=== PATIENT | female | born 1945 ===

== ENCOUNTER 2021-11-29 19:58 | Inpatient (IN) ==
[2021-11-29] MEDS ORDERED: GLUCAGON 1 MG VIAL IM PRN ×2 (22:30)
[2021-11-29] MEDS ORDERED: hydrALAZINE 20 MG/1 ML VIAL IV PRN (22:30)
[2021-11-29] MEDS ORDERED: diphenhydrAMINE CAP 25 MG CAPSULE PO PRN (22:30)
[2021-11-29] MEDS ORDERED: ONDANSETRON 4 MG/2 ML VIAL IV PRN (22:30)
[2021-11-29] MEDS ORDERED: MORPHINE 2 MG/1 ML SYRINGE IV PRN (22:30)
[2021-11-29] MEDS ORDERED: ALBUTEROL/IPRATROPIUM 3 ML NEB RESP TX PRN (22:30)
[2021-11-29] MEDS ORDERED: DEXTROSE 10% 250 ML BAG IV PRN (22:30)
[2021-11-29] MEDS ORDERED: DEXTROSE 50% 25 GM/50 ML VIAL IV PRN (22:30)
[2021-11-29] MEDS ORDERED: ZALEPLON 5 MG CAPSULE PO PRN (22:30)
[2021-11-29] MEDS ORDERED: NICOTINE 21 MG/24 HR PATCH TRANSDERM PRN (22:30)
[2021-11-29 23:52] LABS: INR 1.2; PT Patient Result 12.9 SECS (10.5-12.0); Partial Thromboplastin Time 32.9 SECS (23.7-32.9)
[2021-11-29 23:56] LABS: Albumin 1.5 G/DL (3.4-5.0); Bilirubin,Direct 9.46 MG/DL (0.0-0.20); Bilirubin,Total 11.5 MG/DL (0.20-1.00); Osmolality,Calculated 275.7 MOS/KG (273-304); Potassium 3.2 MMOL/L (3.5-5.1); Total Protein 6.5 G/DL (6.4-8.2)
[2021-11-30 00:18] LABS: Basophils # 0.1 10*3/uL (0.0-0.2); Basophils % 0.6 % (0.0-0.8); Eosinophils # 0.3 10*3/uL (0.0-0.87); Eosinophils % 3.9 % (0.00-10.9); Hemoglobin 11.1 GM/DL (12.0-16.0); Immature Granulocytes % 0.5 %; Immature Granulocytes Absolute 0.04 #; Lymphocytes # 0.4 10*3/uL (1.4-4.0); Mean Corpuscular HGB Conc 32.6 GM/DL (32-36); Mean Corpuscular Volume 89.2 FL (87-102); Mean Platelet Volume 9.9 FL (9.6-12.0); Monocytes # 0.7 10*3/uL (0.11-0.8); Monocytes % 8.4 % (1.7-12.7); Neutrophils % 81.6 % (38.7-73.9); Platelet Count 156 T/CUMM (130-400); Red Blood Count 3.81 MC/CUMM (3.8-5.5); Red Cell Distribution Width 16.9 % (9.3-17.3); White Blood Count 8.7 T/CUMM (4-12)
[2021-11-30] MEDS ORDERED: DEXT 5% NACL 0.9% KCL 40 MEQ 40 MEQ/1,000 ML BAG IV SCH (01:00)
[2021-11-30] MEDS: SODIUM CHLOR 0.9% KCL 40 MEQ 40 MEQ/1,000 ML BAG IV SCH ×2 (01:39→20:15)
[2021-11-30 05:28] LABS: Basophils # 0.1 10*3/uL (0.0-0.2); Basophils % 0.6 % (0.0-0.8); Eosinophils # 0.4 10*3/uL (0.0-0.87); Eosinophils % 4.5 % (0.00-10.9); Hematocrit 34.4 VOL% (35.7-47.0); Hemoglobin 11.1 GM/DL (12.0-16.0); Immature Granulocytes % 0.6 %; Immature Granulocytes Absolute 0.05 #; Lymphocytes # 0.4 10*3/uL (1.4-4.0); Lymphocytes % 4.4 % (21.3-54.2); Mean Corpuscular HGB Conc 32.3 GM/DL (32-36); Mean Corpuscular Volume 89.6 FL (87-102); Mean Platelet Volume 10.1 FL (9.6-12.0); Monocytes # 0.8 10*3/uL (0.11-0.8); Monocytes % 9.2 % (1.7-12.7); Neutrophils % 80.7 % (38.7-73.9); Platelet Count 147 T/CUMM (130-400); Red Blood Count 3.84 MC/CUMM (3.8-5.5); Red Cell Distribution Width 17.2 % (9.3-17.3); White Blood Count 8.5 T/CUMM (4-12)
[2021-11-30 05:43] LABS: Albumin 1.5 G/DL (3.4-5.0); Bilirubin,Total 11.9 MG/DL (0.20-1.00); Calcium 8.3 MG/DL (8.5-10.1); Osmolality,Calculated 277.8 MOS/KG (273-304); Potassium 3.7 MMOL/L (3.5-5.1); Total Protein 6.5 G/DL (6.4-8.2)
[2021-11-30 05:50] LABS: Band Neutrophils 2 % (0-10); Eosinophils 5 % (0-10); Lymphocytes 2 % (20-55); Microcytosis 1+; Total Cells Counted 100
[2021-11-30 05:51] LABS: Hypochromia Slight
[2021-11-30 06:50] LABS: Hepatitis B Core IgM Quant < 0.05 Index; Hepatitis B Surface Ag Quant < 0.10 Index; Hepatitis B Surface Ag Result Non-Reactive (NonReactive); Hepatitis C Virus Ab Quant 0.12 Index; Hepatitis C Virus Ab Result Non-Reactive (NonReactive)
[2021-11-30] MEDS ORDERED: MAGNESIUM SULF RIDER 2 GM/50 ML PREMIX IV ONE (08:22)
[2021-11-30] MEDS: INSULIN LISPRO 100 UNIT/ML SUBCUT SCH ×4 (08:23→21:41)
[2021-11-30] MEDS: HEPARIN 5,000 UNIT/1 ML VIAL SUBCUT SCH ×2 (08:31→21:41)
[2021-11-30] MEDS ORDERED: DIAZEPAM 5 MG TABLET PO ONE (09:01)
[2021-11-30] MEDS: PANTOPRAZOLE 40 MG TABLET PO SCH (09:22)
[2021-11-30] MEDS: LEVOTHYROXINE 112 MCG TABLET PO SCH (09:22)
[2021-11-30 09:43] LABS: Cancer Antigen 19-9 1.5 U/ML (0-35); Carcinoembryonic Antigen 2.1 NG/ML (0.0-5.0)
[2021-11-30] MEDS: LACTULOSE 20 GM/30 ML UDCUP PO SCH ×2 (13:38→21:41)
[2021-11-30] MEDS: MEMANTINE 10 MG TABLET PO SCH (21:41)
[2021-12-01 05:44] LABS: Basophils # 0.1 10*3/uL (0.0-0.2); Basophils % 0.5 % (0.0-0.8); Eosinophils # 0.4 10*3/uL (0.0-0.87); Eosinophils % 3.9 % (0.00-10.9); Hematocrit 30.9 VOL% (35.7-47.0); Immature Granulocytes % 0.3 %; Immature Granulocytes Absolute 0.03 #; Lymphocytes # 0.5 10*3/uL (1.4-4.0); Lymphocytes % 5.4 % (21.3-54.2); Mean Corpuscular HGB Conc 32.4 GM/DL (32-36); Mean Corpuscular Volume 90.1 FL (87-102); Monocytes # 0.8 10*3/uL (0.11-0.8); Monocytes % 8.9 % (1.7-12.7); Platelet Count 131 T/CUMM (130-400); Red Blood Count 3.43 MC/CUMM (3.8-5.5); White Blood Count 9.2 T/CUMM (4-12)
[2021-12-01 06:13] LABS: Albumin 1.3 G/DL (3.4-5.0); Calcium 7.5 MG/DL (8.5-10.1); Osmolality,Calculated 273.8 MOS/KG (273-304); Potassium 4.1 MMOL/L (3.5-5.1); Thyroid Stimulating Hormone 0.397 uIU/ml (0.358-3.74); Total Protein 5.8 G/DL (6.4-8.2)
[2021-12-01 06:18] LABS: Bilirubin,Total 12.1 MG/DL (0.20-1.00)
[2021-12-01] MEDS: INSULIN LISPRO 100 UNIT/ML SUBCUT SCH ×4 (08:49→21:26)
[2021-12-01] MEDS: LEVOTHYROXINE 112 MCG TABLET PO SCH (10:25)
[2021-12-01] MEDS: SODIUM CHLOR 0.9% KCL 40 MEQ 40 MEQ/1,000 ML BAG IV SCH ×2 (10:25→21:27)
[2021-12-01] MEDS: PANTOPRAZOLE 40 MG TABLET PO SCH (10:25)
[2021-12-01] MEDS: HEPARIN 5,000 UNIT/1 ML VIAL SUBCUT SCH ×2 (10:26→21:27)
[2021-12-01] MEDS: LACTULOSE 20 GM/30 ML UDCUP PO SCH ×2 (10:26→21:25)
[2021-12-01] MEDS: MEMANTINE 10 MG TABLET PO SCH (21:25)
[2021-12-02 05:29] LABS: Basophils # 0.1 10*3/uL (0.0-0.2); Basophils % 0.6 % (0.0-0.8); Eosinophils # 0.4 10*3/uL (0.0-0.87); Eosinophils % 4.3 % (0.00-10.9); Hematocrit 31.5 VOL% (35.7-47.0); Hemoglobin 10.3 GM/DL (12.0-16.0); Immature Granulocytes % 0.8 %; Immature Granulocytes Absolute 0.08 #; Lymphocytes # 0.4 10*3/uL (1.4-4.0); Lymphocytes % 4.2 % (21.3-54.2); Mean Corpuscular HGB Conc 32.7 GM/DL (32-36); Mean Corpuscular Volume 90.5 FL (87-102); Monocytes # 0.9 10*3/uL (0.11-0.8); Monocytes % 8.7 % (1.7-12.7); Neutrophils % 81.4 % (38.7-73.9); Platelet Count 123 T/CUMM (130-400); Red Blood Count 3.48 MC/CUMM (3.8-5.5); White Blood Count 9.8 T/CUMM (4-12)
[2021-12-02 05:47] LABS: Albumin 1.2 G/DL (3.4-5.0); Calcium 7.9 MG/DL (8.5-10.1); Osmolality,Calculated 266.5 MOS/KG (273-304); Potassium 4.1 MMOL/L (3.5-5.1); Total Protein 5.9 G/DL (6.4-8.2)
[2021-12-02 05:49] LABS: Bilirubin,Total 13.5 MG/DL (0.20-1.00)
[2021-12-02 06:01] LABS: Band Neutrophils 1 % (0-10); Eosinophils 3 % (0-10); Lymphocytes 3 % (20-55); Total Cells Counted 100
[2021-12-02 06:02] LABS: Hypochromia 2+; Platelet Estimate Normal
[2021-12-02] MEDS: INSULIN LISPRO 100 UNIT/ML SUBCUT SCH ×4 (08:09→21:46)
[2021-12-02] MEDS: LEVOTHYROXINE 112 MCG TABLET PO SCH (08:24)
[2021-12-02] MEDS: PANTOPRAZOLE 40 MG TABLET PO SCH (08:25)
[2021-12-02] MEDS: LACTULOSE 20 GM/30 ML UDCUP PO SCH ×2 (08:25→21:45)
[2021-12-02] MEDS: HEPARIN 5,000 UNIT/1 ML VIAL SUBCUT SCH ×2 (08:26→21:46)
[2021-12-02] MEDS: SODIUM CHLOR 0.9% KCL 40 MEQ 40 MEQ/1,000 ML BAG IV SCH (11:56)
[2021-12-02] MEDS: CIPROFLOXACIN INJ 400 MG/200 ML PREMIX IV SCH ×2 (12:53→23:43)
[2021-12-02] MEDS: MEMANTINE 10 MG TABLET PO SCH (21:45)
[2021-12-03 05:57] LABS: Basophils # 0.1 10*3/uL (0.0-0.2); Basophils % 0.4 % (0.0-0.8); Eosinophils # 0.4 10*3/uL (0.0-0.87); Eosinophils % 3.3 % (0.00-10.9); Hematocrit 31.5 VOL% (35.7-47.0); Hemoglobin 10.4 GM/DL (12.0-16.0); Immature Granulocytes % 0.7 %; Immature Granulocytes Absolute 0.08 #; Lymphocytes # 0.6 10*3/uL (1.4-4.0); Lymphocytes % 5.3 % (21.3-54.2); Mean Corpuscular Volume 89.2 FL (87-102); Mean Platelet Volume 11.3 FL (9.6-12.0); Monocytes # 1.1 10*3/uL (0.11-0.8); Monocytes % 9.6 % (1.7-12.7); Neutrophils % 80.7 % (38.7-73.9); Platelet Count 104 T/CUMM (130-400); Red Blood Count 3.53 MC/CUMM (3.8-5.5); White Blood Count 11.7 T/CUMM (4-12)
[2021-12-03] MEDS: SODIUM CHLOR 0.9% KCL 40 MEQ 40 MEQ/1,000 ML BAG IV SCH ×2 (05:57→11:48)
[2021-12-03] MEDS: LEVOTHYROXINE 112 MCG TABLET PO SCH (06:12)
[2021-12-03 06:15] LABS: Albumin 1.3 G/DL (3.4-5.0); Calcium 7.9 MG/DL (8.5-10.1); Osmolality,Calculated 265.7 MOS/KG (273-304); Potassium 4.6 MMOL/L (3.5-5.1); Total Protein 5.8 G/DL (6.4-8.2)
[2021-12-03 06:21] LABS: Bilirubin,Total 15.1 MG/DL (0.20-1.00)
[2021-12-03] MEDS ORDERED: LIDOCAINE 2% 5 ML VIAL ONE (06:57)
[2021-12-03] MEDS ORDERED: fentaNYL 100 MCG/2 ML VIAL ONE (06:57)
[2021-12-03] MEDS ORDERED: SUCCINYLCHOLINE 200 MG/10 ML VIAL ONE (06:58)
[2021-12-03] MEDS ORDERED: propofoL 200 MG/20 ML VIAL IV ONE (06:58)
[2021-12-03] MEDS ORDERED: ONDANSETRON 4 MG/2 ML VIAL ONE (07:00)
[2021-12-03] MEDS ORDERED: INDOMETHACIN SUPP 50 MG SUPP RECTAL ONE ×2 (07:43→08:23)
[2021-12-03] MEDS: LACTATED RINGERS 1,000 ML IV SCH (08:11)
[2021-12-03] MEDS ORDERED: ETOMIDATE 20 MG/10 ML VIAL IV ONE (08:12)
[2021-12-03] MEDS: INSULIN LISPRO 100 UNIT/ML SUBCUT SCH ×4 (08:25→21:15)
[2021-12-03] MEDS ORDERED: SEVOFLURANE 1 UNIT/15 MINUTE INH ONE (09:31)
[2021-12-03] MEDS ORDERED: PHENYLEPHRINE 1 MG/10 ML SYRINGE IV ONE (09:31)
[2021-12-03] MEDS: LACTULOSE 20 GM/30 ML UDCUP PO SCH ×2 (11:17→21:15)
[2021-12-03] MEDS: HEPARIN 5,000 UNIT/1 ML VIAL SUBCUT SCH ×2 (11:18→21:16)
[2021-12-03] MEDS: PANTOPRAZOLE 40 MG TABLET PO SCH (11:18)
[2021-12-03] MEDS: SODIUM CHLORIDE 0.9% 1,000 ML IV SCH (11:18)
[2021-12-03] MEDS: CIPROFLOXACIN INJ 400 MG/200 ML PREMIX IV SCH ×2 (12:42→23:48)
[2021-12-03] MEDS: MEMANTINE 10 MG TABLET PO SCH (21:15)
[2021-12-04] MEDS: SODIUM CHLORIDE 0.9% 1,000 ML IV SCH ×3 (02:15→23:53)
[2021-12-04 04:49] LABS: Basophils % 0.3 % (0.0-0.8); Eosinophils # 0.4 10*3/uL (0.0-0.87); Eosinophils % 3.6 % (0.00-10.9); Hematocrit 29.9 VOL% (35.7-47.0); Hemoglobin 9.6 GM/DL (12.0-16.0); Immature Granulocytes % 1.3 %; Immature Granulocytes Absolute 0.13 #; Lymphocytes # 0.5 10*3/uL (1.4-4.0); Lymphocytes % 5.1 % (21.3-54.2); Mean Corpuscular HGB Conc 32.1 GM/DL (32-36); Mean Corpuscular Volume 91.7 FL (87-102); Mean Platelet Volume 10.8 FL (9.6-12.0); Monocytes # 0.8 10*3/uL (0.11-0.8); Monocytes % 7.3 % (1.7-12.7); Neutrophils % 82.4 % (38.7-73.9); Platelet Count 110 T/CUMM (130-400); Red Blood Count 3.26 MC/CUMM (3.8-5.5); Red Cell Distribution Width 16.6 % (9.3-17.3); White Blood Count 10.4 T/CUMM (4-12)
[2021-12-04 05:15] LABS: Albumin 1.1 G/DL (3.4-5.0); Bilirubin,Total 11.8 MG/DL (0.20-1.00); Calcium 8.2 MG/DL (8.5-10.1); Osmolality,Calculated 268.4 MOS/KG (273-304); Total Protein 5.6 G/DL (6.4-8.2)
[2021-12-04 05:17] LABS: Albumin 1.2 G/DL (3.4-5.0); Bilirubin,Direct 9.61 MG/DL (0.0-0.20); Bilirubin,Indirect 2.6 MG/DL (0.0-1.0); Total Protein 5.2 G/DL (6.4-8.2)
[2021-12-04 05:18] LABS: Bilirubin,Total 12.2 MG/DL (0.20-1.00)
[2021-12-04] MEDS: LEVOTHYROXINE 112 MCG TABLET PO SCH (06:02)
[2021-12-04] MEDS: PANTOPRAZOLE 40 MG TABLET PO SCH (08:44)
[2021-12-04] MEDS: HEPARIN 5,000 UNIT/1 ML VIAL SUBCUT SCH ×2 (08:44→21:34)
[2021-12-04] MEDS: LACTULOSE 20 GM/30 ML UDCUP PO SCH ×2 (08:44→21:25)
[2021-12-04] MEDS: INSULIN LISPRO 100 UNIT/ML SUBCUT SCH ×4 (09:01→21:25)
[2021-12-04] MEDS: LACTATED RINGERS 1,000 ML IV SCH (09:02)
[2021-12-04] MEDS: MEMANTINE 10 MG TABLET PO SCH (21:25)
[2021-12-04] MEDS: guaiFENesin/DM ER 600-30 MG TABLET PO PRN (21:25)
[2021-12-05] MEDS: SODIUM CHLORIDE 0.9% 1,000 ML IV SCH ×2 (03:55→16:53)
[2021-12-05] MEDS: LEVOTHYROXINE 112 MCG TABLET PO SCH (05:52)
[2021-12-05 08:01] LABS: Basophils # 0.1 10*3/uL (0.0-0.2); Basophils % 0.5 % (0.0-0.8); Eosinophils # 0.3 10*3/uL (0.0-0.87); Hematocrit 31.8 VOL% (35.7-47.0); Hemoglobin 10.5 GM/DL (12.0-16.0); Immature Granulocytes % 1.1 %; Immature Granulocytes Absolute 0.15 #; Lymphocytes # 0.6 10*3/uL (1.4-4.0); Lymphocytes % 4.6 % (21.3-54.2); Mean Corpuscular Volume 89.6 FL (87-102); Mean Platelet Volume 10.4 FL (9.6-12.0); Monocytes % 7.4 % (1.7-12.7); Neutrophils % 84.4 % (38.7-73.9); Platelet Count 137 T/CUMM (130-400); Red Blood Count 3.55 MC/CUMM (3.8-5.5); Red Cell Distribution Width 17.2 % (9.3-17.3); White Blood Count 13.2 T/CUMM (4-12)
[2021-12-05 08:19] LABS: Albumin 1.2 G/DL (3.4-5.0); Bilirubin,Total 10.3 MG/DL (0.20-1.00); Calcium 8.3 MG/DL (8.5-10.1); Osmolality,Calculated 268.2 MOS/KG (273-304); Potassium 4.1 MMOL/L (3.5-5.1); Total Protein 5.8 G/DL (6.4-8.2)
[2021-12-05 08:21] LABS: Eosinophils 1 % (0-10); Lymphocytes 6 % (20-55); Total Cells Counted 100
[2021-12-05 08:22] LABS: Microcytosis 1+
[2021-12-05 08:23] LABS: Platelet Estimate Adequate
[2021-12-05 08:24] LABS: Polychromasia Slight
[2021-12-05] MEDS: LACTULOSE 20 GM/30 ML UDCUP PO SCH (09:21)
[2021-12-05] MEDS: guaiFENesin/DM ER 600-30 MG TABLET PO PRN (09:21)
[2021-12-05] MEDS: PANTOPRAZOLE 40 MG TABLET PO SCH (09:21)
[2021-12-05] MEDS: HEPARIN 5,000 UNIT/1 ML VIAL SUBCUT SCH (09:22)
[2021-12-05] MEDS: INSULIN LISPRO 100 UNIT/ML SUBCUT SCH ×3 (09:51→17:53)
[2021-12-05] MEDS: LACTATED RINGERS 1,000 ML IV SCH (09:51)
[2021-12-05] MEDS ORDERED: cefTRIAXone 1,000 MG in SODIUM CHLORIDE 0.9% 100 ML IV ONE (12:48)
[2021-12-05 16:42] VITALS: BP 120/70
[2021-12-07 20:46] LABS: Specimen Source THROAT
== END 2021-12-05 18:39 | disposition home health service (06) | DRG 435 ==
LOC: N.TELES 21:48 → SUATTDRO 21:48
PROVIDERS: ADMIT Internal Medicine; ATTEND Internal Medicine

== ENCOUNTER 2021-12-07 05:30 | Inpatient (IN) ==
[2021-12-07] MEDS ORDERED: DEXTROSE 10% 250 ML BAG IV PRN (09:13)
[2021-12-07] MEDS ORDERED: ONDANSETRON 4 MG/2 ML VIAL IV PRN (09:13)
[2021-12-07] MEDS ORDERED: ACETAMINOPHEN 325 MG TABLET PO PRN (09:13)
[2021-12-07] MEDS ORDERED: GLUCAGON 1 MG VIAL IM PRN (09:13)
[2021-12-07 10:28] LABS: Thyroid Stimulating Hormone 0.815 uIU/ml (0.358-3.74)
[2021-12-07] MEDS ORDERED: ALBUTEROL/IPRATROPIUM 3 ML NEB RESP TX PRN (10:50)
[2021-12-07] MEDS: INSULIN LISPRO 100 UNIT/ML SUBCUT SCH ×3 (12:18→20:34)
[2021-12-07 15:34] LABS: Amylase,Peritoneal Fluid 26 U/L; Glucose,Peritoneal Fluid 120 MG/DL; LDH,Peritoneal Fluid 48 U/L; Total Protein,Peritoneal Fluid < 1.0 G/DL
[2021-12-07 15:57] LABS: Neutrophils,Peritoneal Fluid 65 %
[2021-12-07] MEDS ORDERED: FUROSEMIDE 40 MG/4 ML VIAL IV SCH (16:00)
[2021-12-07 16:01] LABS: RBC,Peritoneal Fluid < 1 T/CUMM
[2021-12-07] MEDS: guaiFENesin/DM ER 600-30 MG TABLET PO SCH ×2 (16:35→20:29)
[2021-12-07] MEDS: SPIRONOLACTONE 25 MG TABLET PO SCH (16:37)
[2021-12-07] MEDS: DOCUSATE SODIUM 100 MG CAPSULE PO SCH (20:34)
[2021-12-08] MEDS: FUROSEMIDE 40 MG/4 ML VIAL IV SCH (05:43)
[2021-12-08] MEDS: PANTOPRAZOLE 40 MG TABLET PO SCH (05:44)
[2021-12-08 05:45] LABS: Basophils % 0.4 % (0.0-0.8); Eosinophils # 0.2 10*3/uL (0.0-0.87); Eosinophils % 1.7 % (0.00-10.9); Hematocrit 29.4 VOL% (35.7-47.0); Hemoglobin 9.6 GM/DL (12.0-16.0); Lymphocytes # 0.5 10*3/uL (1.4-4.0); Lymphocytes % 4.8 % (21.3-54.2); Mean Corpuscular HGB Conc 32.7 GM/DL (32-36); Mean Corpuscular Volume 91.6 FL (87-102); Mean Platelet Volume 10.1 FL (9.6-12.0); Monocytes # 0.9 10*3/uL (0.11-0.8); Monocytes % 8.4 % (1.7-12.7); Neutrophils % 83.7 % (38.7-73.9); Platelet Count 129 T/CUMM (130-400); Red Blood Count 3.21 MC/CUMM (3.8-5.5); Red Cell Distribution Width 18.5 % (9.3-17.3); White Blood Count 10.1 T/CUMM (4-12)
[2021-12-08 06:07] LABS: Osmolality,Calculated 263.5 MOS/KG (273-304); Potassium 3.9 MMOL/L (3.5-5.1)
[2021-12-08 06:27] LABS: Eosinophils 4 % (0-10); Hypochromia Slight; Lymphocytes 5 % (20-55); Platelet Estimate Normal; Total Cells Counted 100
[2021-12-08] MEDS: INSULIN LISPRO 100 UNIT/ML SUBCUT SCH ×4 (08:57→21:12)
[2021-12-08] MEDS: SPIRONOLACTONE 25 MG TABLET PO SCH (09:00)
[2021-12-08] MEDS: DOCUSATE SODIUM 100 MG CAPSULE PO SCH ×2 (09:00→21:12)
[2021-12-08] MEDS: guaiFENesin/DM ER 600-30 MG TABLET PO SCH ×2 (09:00→21:12)
[2021-12-08] MEDS: ENOXAPARIN 40 MG/0.4 ML SYRINGE SUBCUT SCH (17:14)
[2021-12-08] MEDS: MEMANTINE 10 MG TABLET PO SCH (21:12)
[2021-12-09 05:29] LABS: Basophils % 0.5 % (0.0-0.8); Eosinophils # 0.2 10*3/uL (0.0-0.87); Eosinophils % 1.9 % (0.00-10.9); Hematocrit 30.3 VOL% (35.7-47.0); Hemoglobin 9.8 GM/DL (12.0-16.0); Immature Granulocytes % 1.1 %; Immature Granulocytes Absolute 0.09 #; Lymphocytes # 0.6 10*3/uL (1.4-4.0); Lymphocytes % 7.6 % (21.3-54.2); Mean Corpuscular HGB Conc 32.3 GM/DL (32-36); Mean Corpuscular Volume 91.3 FL (87-102); Mean Platelet Volume 10.2 FL (9.6-12.0); Monocytes # 0.9 10*3/uL (0.11-0.8); Monocytes % 10.1 % (1.7-12.7); Neutrophils % 78.8 % (38.7-73.9); Platelet Count 119 T/CUMM (130-400); Red Blood Count 3.32 MC/CUMM (3.8-5.5); Red Cell Distribution Width 18.7 % (9.3-17.3); White Blood Count 8.4 T/CUMM (4-12)
[2021-12-09 05:43] LABS: Calcium 7.8 MG/DL (8.5-10.1); Osmolality,Calculated 267.4 MOS/KG (273-304); Potassium 3.9 MMOL/L (3.5-5.1)
[2021-12-09] MEDS ORDERED: LEVOTHYROXINE 112 MCG TABLET ONE (05:47)
[2021-12-09] MEDS: LEVOTHYROXINE 112 MCG TABLET PO SCH (06:09)
[2021-12-09] MEDS: FUROSEMIDE 40 MG/4 ML VIAL IV SCH (06:09)
[2021-12-09] MEDS: PANTOPRAZOLE 40 MG TABLET PO SCH (06:09)
[2021-12-09] MEDS: MULTIVITAMIN (CENTRUM) TABLET PO SCH (08:35)
[2021-12-09] MEDS: SPIRONOLACTONE 25 MG TABLET PO SCH (08:35)
[2021-12-09] MEDS: guaiFENesin/DM ER 600-30 MG TABLET PO SCH ×2 (08:36→21:16)
[2021-12-09] MEDS: DOCUSATE SODIUM 100 MG CAPSULE PO SCH ×2 (08:36→21:17)
[2021-12-09] MEDS: INSULIN LISPRO 100 UNIT/ML SUBCUT SCH ×4 (08:38→21:16)
[2021-12-09] MEDS: ENOXAPARIN 40 MG/0.4 ML SYRINGE SUBCUT SCH (13:34)
[2021-12-09] MEDS ORDERED: AZITHROMYCIN INJ 500 MG in SODIUM CHLORIDE 0.9% 250 ML IV ONE (13:35)
[2021-12-09] MEDS: cefTRIAXone 1,000 MG in SODIUM CHLORIDE 0.9% 100 ML IV SCH (16:50)
[2021-12-09] MEDS: MEMANTINE 10 MG TABLET PO SCH (21:17)
[2021-12-10 05:52] LABS: Basophils % 0.4 % (0.0-0.8); Eosinophils # 0.2 10*3/uL (0.0-0.87); Eosinophils % 2.1 % (0.00-10.9); Hematocrit 29.1 VOL% (35.7-47.0); Hemoglobin 9.6 GM/DL (12.0-16.0); Immature Granulocytes Absolute 0.07 #; Lymphocytes # 0.6 10*3/uL (1.4-4.0); Lymphocytes % 8.6 % (21.3-54.2); Mean Corpuscular Volume 92.1 FL (87-102); Mean Platelet Volume 9.6 FL (9.6-12.0); Monocytes # 0.8 10*3/uL (0.11-0.8); Monocytes % 10.5 % (1.7-12.7); Neutrophils % 77.4 % (38.7-73.9); Platelet Count 122 T/CUMM (130-400); Red Blood Count 3.16 MC/CUMM (3.8-5.5); Red Cell Distribution Width 18.6 % (9.3-17.3); White Blood Count 7.3 T/CUMM (4-12)
[2021-12-10 06:05] LABS: Calcium 7.5 MG/DL (8.5-10.1); Osmolality,Calculated 267.2 MOS/KG (273-304); Potassium 3.7 MMOL/L (3.5-5.1)
[2021-12-10] MEDS: LEVOTHYROXINE 112 MCG TABLET PO SCH (06:13)
[2021-12-10] MEDS: PANTOPRAZOLE 40 MG TABLET PO SCH (06:13)
[2021-12-10] MEDS: FUROSEMIDE 40 MG/4 ML VIAL IV SCH (06:13)
[2021-12-10 07:07] LABS: Anisocytosis 1+; Hypochromia Slight; Platelet Estimate Adequate; Polychromasia Slight
[2021-12-10] MEDS: INSULIN LISPRO 100 UNIT/ML SUBCUT SCH ×4 (08:07→21:35)
[2021-12-10] MEDS: DOCUSATE SODIUM 100 MG CAPSULE PO SCH ×2 (09:22→21:35)
[2021-12-10] MEDS: guaiFENesin/DM ER 600-30 MG TABLET PO SCH ×2 (09:22→21:35)
[2021-12-10] MEDS: MULTIVITAMIN (CENTRUM) TABLET PO SCH (09:22)
[2021-12-10] MEDS: SPIRONOLACTONE 25 MG TABLET PO SCH (09:22)
[2021-12-10] MEDS: cefTRIAXone 1,000 MG in SODIUM CHLORIDE 0.9% 100 ML IV SCH (14:07)
[2021-12-10] MEDS: ENOXAPARIN 40 MG/0.4 ML SYRINGE SUBCUT SCH (14:07)
[2021-12-10] MEDS: AZITHROMYCIN INJ 250 MG in SODIUM CHLORIDE 0.9% 250 ML IV SCH (15:43)
[2021-12-10] MEDS: MEMANTINE 10 MG TABLET PO SCH (21:35)
[2021-12-11 05:21] LABS: Basophils % 0.4 % (0.0-0.8); Eosinophils # 0.1 10*3/uL (0.0-0.87); Eosinophils % 1.7 % (0.00-10.9); Hematocrit 31.6 VOL% (35.7-47.0); Immature Granulocytes % 0.7 %; Immature Granulocytes Absolute 0.06 #; Lymphocytes # 0.7 10*3/uL (1.4-4.0); Lymphocytes % 7.8 % (21.3-54.2); Mean Corpuscular HGB Conc 31.6 GM/DL (32-36); Mean Corpuscular Volume 92.1 FL (87-102); Mean Platelet Volume 9.9 FL (9.6-12.0); Monocytes # 0.9 10*3/uL (0.11-0.8); Monocytes % 10.1 % (1.7-12.7); Neutrophils % 79.3 % (38.7-73.9); Platelet Count 113 T/CUMM (130-400); Red Blood Count 3.43 MC/CUMM (3.8-5.5); Red Cell Distribution Width 18.7 % (9.3-17.3); White Blood Count 8.4 T/CUMM (4-12)
[2021-12-11 05:32] LABS: Calcium 7.9 MG/DL (8.5-10.1); Osmolality,Calculated 259.8 MOS/KG (273-304); Potassium 3.7 MMOL/L (3.5-5.1)
[2021-12-11] MEDS: FUROSEMIDE 40 MG/4 ML VIAL IV SCH (05:54)
[2021-12-11] MEDS: LEVOTHYROXINE 112 MCG TABLET PO SCH (05:54)
[2021-12-11] MEDS: PANTOPRAZOLE 40 MG TABLET PO SCH (05:54)
[2021-12-11] MEDS: INSULIN LISPRO 100 UNIT/ML SUBCUT SCH ×4 (09:05→20:35)
[2021-12-11] MEDS: guaiFENesin/DM ER 600-30 MG TABLET PO SCH ×2 (09:06→20:35)
[2021-12-11] MEDS: MULTIVITAMIN (CENTRUM) TABLET PO SCH (09:07)
[2021-12-11] MEDS: DOCUSATE SODIUM 100 MG CAPSULE PO SCH ×2 (09:07→20:35)
[2021-12-11] MEDS: SPIRONOLACTONE 25 MG TABLET PO SCH (09:07)
[2021-12-11] MEDS: AZITHROMYCIN INJ 250 MG in SODIUM CHLORIDE 0.9% 250 ML IV SCH (13:31)
[2021-12-11] MEDS: ENOXAPARIN 40 MG/0.4 ML SYRINGE SUBCUT SCH (13:33)
[2021-12-11] MEDS: SODIUM CHLORIDE 0.9% 1,000 ML IV SCH (14:43)
[2021-12-11] MEDS: cefTRIAXone 1,000 MG in SODIUM CHLORIDE 0.9% 100 ML IV SCH (14:49)
[2021-12-11] MEDS: MEMANTINE 10 MG TABLET PO SCH (20:35)
[2021-12-12] MEDS: SODIUM CHLORIDE 0.9% 1,000 ML IV SCH (04:52)
[2021-12-12 05:08] LABS: Calcium 7.9 MG/DL (8.5-10.1); Osmolality,Calculated 263.5 MOS/KG (273-304); Potassium 3.7 MMOL/L (3.5-5.1)
[2021-12-12] MEDS: PANTOPRAZOLE 40 MG TABLET PO SCH (05:45)
[2021-12-12] MEDS: LEVOTHYROXINE 112 MCG TABLET PO SCH ×2 (05:45→06:38)
[2021-12-12] MEDS: FUROSEMIDE 40 MG/4 ML VIAL IV SCH (05:45)
[2021-12-12] MEDS: INSULIN LISPRO 100 UNIT/ML SUBCUT SCH ×2 (07:30→12:43)
[2021-12-12 09:44] LABS: Albumin 1.2 G/DL (3.4-5.0); Bilirubin,Direct 3.24 MG/DL (0.0-0.20); Bilirubin,Indirect 1.1 MG/DL (0.0-1.0); Bilirubin,Total 4.3 MG/DL (0.20-1.00)
[2021-12-12] MEDS: DOCUSATE SODIUM 100 MG CAPSULE PO SCH (10:12)
[2021-12-12] MEDS: guaiFENesin/DM ER 600-30 MG TABLET PO SCH (10:12)
[2021-12-12] MEDS: SPIRONOLACTONE 25 MG TABLET PO SCH (10:12)
[2021-12-12] MEDS: MULTIVITAMIN (CENTRUM) TABLET PO SCH (10:12)
[2021-12-12] MEDS: cefTRIAXone 1,000 MG in SODIUM CHLORIDE 0.9% 100 ML IV SCH (10:12)
[2021-12-12 11:49] VITALS: BP 106/66
== END 2021-12-12 13:22 | disposition hospice, home (50) | DRG 432 ==
LOC: N.5E → SUATTDRO 09:12
PROVIDERS: ADMIT Internal Medicine; ATTEND Emergency Medicine